=== PATIENT | female | born 1995 | race Hispanic/Latino ===

== ENCOUNTER 2020-11-22 16:19 | Emergency (ER) | payer OTHER ==
--- NOTE | 2020-11-22 18:44 | ER ---
Nurse's Notes [facility] Name: Samantha Toney Age: 25 yrs Sex: Female : 1995 Arrival Date: 11/22/2020 Time: 16:23 Bed Waiting Private MD: Diagnosis: ED Course: 11/22 16:23 Patient arrived in ED. as 17:08 Patient's name was called from ER lobby. No response. aa5 17:19 Patient's name was called from ER lobby. No response. aa5 18:44 Darryn Thompson MD is Attending Physician. aa5 Administered Medications: No medications were administered Outcome: 18:44 Patient left the ED. aa5 Signatures: Angelica Juarez Audri, RN RN aa5
== END 2020-11-22 18:44 | disposition left against medical advice (07) ==
LOC: ER 16:19
DX: Z02.9 Encounter for administrative examinations, unspecified (principal)